=== PATIENT | male | born 1990 | race African-American/Black ===

== ENCOUNTER 2019-12-22 09:58 | Outpatient (CLI) | payer OTHER ==
--- NOTE | 2019-12-22 12:03 | RAD ---
CHEST 1 VIEW: Date: 12/22/2019 Time: 1009 hours HISTORY: Screening for tuberculosis. FINDINGS: The cardiomediastinum is normal. The lungs are expanded and clear. The bony thorax is normal. IMPRESSION: Normal exam. No radiographic evidence of active pulmonary tuberculosis. POS: [facility]
== END 2019-12-22 09:59 | disposition home or self-care (01) ==
LOC: BICRAD 09:58
PROVIDERS: ATTEND Internal Medicine Pulmonary Disease
DX: Z11.1 Encounter for screening for respiratory tuberculosis (principal)
CPT/HCPCS: 71045